=== PATIENT | male | born 1970 | race Caucasian/White ===

== ENCOUNTER 2025-02-07 10:03 | Outpatient (REF) | payer OTHER, SELFPAY ==
--- OUTSIDE RECORDS SUMMARY | 2025-02-07 09:00 | XMS_ITS | Encounter Summary ---
Author Organization [employer] [facility] Address [address] [place] [address] [address] [address] Care Team Providers Care Power Hammer Operator Name Role Phone Jeanie Briggs MD Primary Care Provider [phone] Reason for Referral * Consultation (Routine) - Authorized Specialty Diagnoses / Procedures Referred By Camille oneill Referred To Contact Nutrition Diagnoses Primary hypertension Prediabetes Jeanie Briggs MD [address] [place] [address] Phone: tel: fax: Referral ID Status Reason Start Date Expiration Date Visits Requested Visits Authorized [id number] Authorized Consult and Treat 02/07/2025 02/07/2026 1 1 * Consultation (Routine) - Pending Review Specialty Diagnoses / Procedures Referred By Camille oneill Referred To Contact Chiropractic Medicine Diagnoses Neck pain Jeanie Briggs MD [address] [place] [address] Phone: tel: fax: Referral ID Status Reason Start Date Expiration Date Visits Requested Visits Authorized [id number] Pending Review Specialty Services Required 02/07/2026 1 1 Reason for Visit * Reason Comments Establish Care Hypertension Encounter Details Date Type Department Care Team ([facility] Contact Info) Description 02/07/2025 9:00 AM EDT Office Visit [facility] MED & PEDS [address] [place] [address] Jeanie Briggs MD [address] [place] [address] Primary hypertension (Primary Dx); Prediabetes; Neck pain Social History Tobacco Use Types Packs/Day Years Used Date Smoking Tobacco: Never Smokeless Tobacco: Never Tobacco Cessation:Counseling Given: Not Answered Alcohol Use Standard Drinks/Week Comments Never 0 (1 standard drink = 0.6 oz pur e alcohol) Depression Answer Date Recorded Patient Health Questionnaire-9 Score 15 02/07/2025 Patient Health Questionnaire-9 Score 15 02/07/2025 Last PHQ-9: Questionnaire Data Not on file 1 Housing Stability Answer Date Recorded What is your housing situation today? I have jose de jesus em 02/07/[address] you li ve. Do you have problems with any of the following? None of the above 02/07/2025 Food Insecurity Answer Date Recorded Within the past 12 months, y ou worried that your food would run out before you got money to buy more: Never True 02/07/2025 Within the past 12 months,th e food you bought just didn't last and you didn't have enough money to get more: Never True Transportation Answer Date Recorded In the past 12 months, has l ack of transportation kept you from medical appts, meetings, work or from getting things needed for daily living? No 02/07/2025 Utilities Answer Date Recorded In the past 12 months, has t he electric, gas, oil or water company threatened to shut off services in your home? No 02/07/2025 Depression Answer Date Recorded Patient Health Questionnaire-2 Score 4 02/07/2025 Internet Access Answer Date Recorded Internet Access Q1 No 02/07/2025 Internet Access Q2 I do not want or need it 01/18 Sex and Gender Information Value Date Recorded Sex Assigned at Male 02/16/2022 10:31 AM EDT Legal Sex Male 10:31 AM EDT Gender Identity Male 02/16/2022 10:31 AM EDT Sexual Orientation Don't know 02/16/2022 10 :31 AM EDT documented as of this encounter Last Filed Vital Signs Vital Sign Reading Time Taken Comments Blood Pressure 138/96 02/07/2025 9:27 AM EDT Manually checked Pulse 71 02/07/2025 9:27 AM EDT Temperature 36.3 C (97.3 F) 02/07/2025 9:27 AM EDT Respiratory Rate 18 02/07/2025 9:27 AM EDT Oxygen Saturation - - Inhaled Oxygen Concentration - - Weight 115 kg (254 lb) 02/07/2025 9:27 AM EDT Height 180.3 cm (5' 11 ) 02/07/2025 9:2 7 AM EDT Body Mass Index 35.43 02/07/2025 9:27 AM EDT documented in this encounter Functional Status * Over the past 2 weeks, how often have you been bothered by any of the following problems? Question Answer Date of Assessment Author Patient Health Questionnaire -2 Score 4 02/07/2025 9:32 AM EDT Tatiana Fortune MA * Little interest or pleasure in doing things Answer Date of Assessment Author More than half the days 02/07/2025 9:32 AM EDT Tatiana Mcdermott MA * Feeling down, depressed, or hopeless Answer Date of Assessment Author More than half the days 02/07/2025 9:32 AM EDT Tatiana Mcdermott MA * Trouble falling or staying asleep, or sleeping too much Answer Date of Assessment Author More than half the days 02/07/2025 9:32 AM EDT Tatiana Mcdermott MA * Feeling tired or having little energy Answer Date of Assessment Author More than half the days 02/07/2025 9:32 AM EDT Tatiana Mcdermott MA * Poor appetite or overeating Answer Date of Assessment Author Several days 02/07/2025 9:32 AM EDT Nohemy Fortune MA * Feeling bad about yourself - or that you are a failure or have let yourself or your family down Answer Date of Assessment Author Several days 02/07/2025 9:32 AM EDT Nohemy Fortune MA * Trouble concentrating on things, such as reading the newspaper or watching television Answer Date of Assessment Author Nearly every day 02/07/2025 9:32 AM EDT Makenzie Fortune MA * Moving or speaking so slowly that other people could have noticed? Or the opposite - being so fidgety or restless that you have been moving around a lot more than usual. Answer Date of Assessment Author More than half the days 02/07/2025 9:32 AM EDT Tatiana Mcdermott MA * Thoughts that you would be better off or hurting yourself in some way Answer Date of Assessment Author Not at all 02/07/2025 9:32 AM EDT Nohemy Fortune MA * Patient Health Questionnaire-9 Score Answer Date of Assessment Author 15 02/07/2025 9:32 AM EDT Nohemy Fortune MA * How difficult have these problems made it for you to do your work, take care of things at home, or get along with other people? Answer Date of Assessment Author Somewhat difficult 02/07/2025 9:32 AM EDT Tatiana Fortune MA documented as of this encounter Progress Notes * Jeanie Briggs MD - 02/07/2025 9:00 AM EDT Subjective Patient ID: Conor Muhammad is a 54 y.o. male who presents for Establish Care and Hypertension. Hypertension This is a new problem. The problem has been gradually worsening since onset. The problem is uncontrolled. Pertinent negatives include no anxiety, blurred vision, chest pain, headaches, malaise/fatigue, neck pain, orthopnea, palpitations, peripheral edema, PND, shortness of breath or sweats. Risk factors for coronary artery disease include family history, male gender and sedentary lifestyle. Past treatments include nothing. There are no compliance problems. Review of Systems Constitutional: Negative. Negative for malaise/fatigue. Eyes: Negative for blurred vision. Respiratory: Negative. Negative for shortness of breath. Cardiovascular: Negative. Negative for chest pain, palpitations, orthopnea and PND. Gastrointestinal: Negative. Genitourinary: Negative. Musculoskeletal: Negative for neck pain. Neurological: Negative for headaches. Objective Physical Exam Constitutional: Appearance: Normal appearance. Cardiovascular: Rate and Rhythm: Normal rate and regular rhythm. Pulmonary: Effort: Pulmonary effort is normal. Breath sounds: Normal breath sounds. Neurological: General: No focal deficit present. Mental Status: He is alert. Psychiatric: Mood and Affect: Mood normal. Behavior: Behavior normal. Assessment/Plan Diagnoses and all orders for this visit: Primary hypertension Comments: Elevated Refererred to fire prevention specialist Maintain a low-sodium diet (less than 2 grams per day). Maintain a regular cardiovascular exercise program. Advised to maintain a low-fat, low-cholesterol diet. Counseled regarding importance of weight loss. Counseled re: potential co-morbidities including cardiovascular disease. Orders: - Basic Metabolic Panel; Future - Lipid Panel, Standard; Future - Hepatic Function Panel; Future - Referral to Nutrition Therapy; Future Prediabetes Labs ordered today to confirm - Hemoglobin A1c; Future - Basic Metabolic Panel; Future - Albumin, Random Urine W/Creatinine; Future - Referral to Nutrition Therapy; Future Neck pain Comments: Advised stretching and warm compress Naproxen as needed Referred to Chiropractor Orders: - Referral to Chiropractic; Future documented in this encounter Plan of Treatment Upcoming Encounters Date Type Department Care Team (Late st Contact Info) Description 03/20/2025 2:00 PM EST Office Visit [facility] MED & PEDS [address] [place], [place] [id number] Yarely Patel, [facility] [address] [place] [address] Scheduled Orders Name Type Priority Associated Diagnoses Orde r Schedule Hemoglobin A1c Lab Routine Prediabetes Expected: 02/07/2025 (Approximate), Expires: 02/07/2026 Basic Metabolic Panel Lab Routine Primary hypertension Prediabetes Expected: 02/07/2025 (Approximate), Expires: 02/07/2026 Lipid Panel, Standard Lab Routine Primary hypertension Expected: 02/07/2025 (Approximate), Expires: 02/07/2026 Hepatic Function Panel Lab Routine Primary hypertension Expected: 02/07/2025 (Approximate), Expires: 02/07/2026 Albumin, Random Urine W/Creatinine Lab Routine Prediabetes Expected: 02/07/2025 (Approximate), Expires: 02/07/2026 Scheduled Referrals Name Type Priority Associated Diagnoses Order Schedule Referral to Chiropractic Outpatient Referral Routine Neck pain Expected: 02/07/2025 (Approximate), Expires: 02/07/2026 Referral to Nutrition Therapy Outpatient Referral Routine Primary hypertension Prediabetes Expected: 02/07/2025 (Approximate), Expires: 02/07/2026 documented as of this encounter Visit Diagnoses Diagnosis Primary hypertension- Primary Unspecified essential hypertension Prediabetes Other abnormal glucose Neck pain Cervicalgia documented in this encounter Additional Health Concerns Assessment Noted Time PHQ-9 Depression Total Score: 15 025 9:32 AM EDT documented as of this encounter Care Teams Power Hammer Operator Relationship Specialty Start Date End Date Jeanie Briggs MD [address] [place] [address] PCP - General Family Medicine 02/07/25 documented as of this encounter
--- OUTSIDE RECORDS SUMMARY | 2025-02-07 12:21 | XMS_ITS | Encounter Summary ---
Author Organization [employer] [facility] Address [address] [place] [address] 7 [place] [address] Care Team Providers Care Home Decorator Name Role Phone Unavailable Primary Care Provider Unavailabl e Reason for Visit * Reason Comments Pre-visit Planning Pre visit planning L VM Encounter Details Date Type Department Care Team (Late Contact Info) Description 02/02/2025 Patient Outreach [facility] [address] [place] [address] Timmy Krueger MD [address] [place] [address] Pre-visit Planning (Pre visit planning LVM ) Social History Tobacco Use Types Packs/Day Years Used Date Smoking Tobacco: Never Assessed Sex and Gender Information Value Date Recorded Sex Assigned at Male 02/16/2022 10:31 AM EDT Legal Sex Male 10:31 AM EDT Gender Identity Male 02/16/2022 10:31 AM EDT Sexual Orientation Don't know 02/16/2022 10 :31 AM EDT documented as of this encounter Progress Notes * Chang Gu - 02/02/2025 9:23 AM EDT CC Chang Banegas placed outbound call to patient to complete pre-visit planning. No answer at this time.Patient name and were not confirmed. CC left voicemail requesting return call. Direct contact information provided. documented in this encounter Plan of Treatment Upcoming Encounters Date Type Department Care Team (Late Contact Info) Description 03/20/2025 2:00 PM EST Office Visit [facility] MED & PEDS [address] [place] [address] Yarely Patel, MICHAEL [address] [facility] [place] [address] documented as of this encounter Visit Diagnoses Not on filedocumented in this encounter
--- OUTSIDE RECORDS SUMMARY | 2025-02-07 12:21 | XMS_ITS | Encounter Summary ---
Author Organization [employer] [facility] Address [address] [place] [address] [place] [id number] Care Team Providers Care Supervisor Hospitality House Name Role Phone Jeanie Briggs MD Primary Care Provider [phone] Encounter Details Date Type Department Care Team (Latest Contact Info) Description 08/08/2020 Abstract [facility] CONVERSION[facility] Dental, Provider, DDS Social History Tobacco Use Types Packs/Day Years Used Date Smoking Tobacco: Never Assessed Sex and Gender Information Value Date Recorded Sex Assigned at Male 02/16/2022 10:31 AM EDT Legal Sex Male 10:31 AM EDT Gender Identity Male 02/16/2022 10:31 AM EDT Sexual Orientation Don't know 02/16/2022 10 :31 AM EDT documented as of this encounter Plan of Treatment Upcoming Encounters Date Type Department Care Team ( st Contact Info) Description 03/20/2025 2:00 PM EST Office Visit [facility] MED & PEDS [address] [place] [address] Yarely Patel CNP [address] [place] [address] documented as of this encounter Visit Diagnoses Not on filedocumented in this encounter Care Teams Supervisor Hospitality House Relationship Specialty Start Date End Date Jeanie Briggs MD [address] [place] [address] PCP - General Family Medicine 02/07/25 documented as of this encounter
--- OUTSIDE RECORDS SUMMARY | 2025-02-07 12:21 | XMS_ITS | Encounter Summary ---
Author Organization [employer] [facility] Address [address] [place] [address] [address] [place] [address] Care Team Providers Care Classroom Paraprofessional Name Role Phone Unavailable Primary Care Provider Unavailabl e Reason for Visit * Reason Onset Date Comments chart prep 02/05/2025 Encounter Details Date Type Department Care Team (Late st Contact Info) Description 02/05/2025 Telephone [facility] MED & PEDS [address] [place] [address] Jeanie Briggs MD [address] [place] [address] chart prep Social History Tobacco Use Types Packs/Day Years Used Date Smoking Tobacco: Never Assessed Sex and Gender Information Value Date Recorded Sex Assigned at Male 02/16/2022 10:31 AM EDT Legal Sex Male 10:31 AM EDT Gender Identity Male 02/16/2022 10:31 AM EDT Sexual Orientation Don't know 02/16/2022 10 :31 AM EDT documented as of this encounter Miscellaneous Notes * Telephone Encounter - Isadora Holliday MA - 02/05/2025 2:42 PM EDT Chart Prep Labs: not applicable Images: not applicable Referrals: not applicable Vaccines due: Covid, Flu, PCV20, Hep B, and Zoster Screenings: colonoscopy Overdue care gaps: SBIRT, SDOH, PHQ-9, and Disability screen documented in this encounter Plan of Treatment Upcoming Encounters Date Type Department Care Team (Late st Contact Info) Description 03/20/2025 2:00 PM EST Office Visit [facility] MED & PEDS [address] [place] [address] Yarely Patel, MICHAEL 505 [facility] [place] [address] documented as of this encounter Visit Diagnoses Not on filedocumented in this encounter
--- OUTSIDE RECORDS SUMMARY | 2025-02-07 12:21 | XMS_ITS | Clinical Summary ---
Author Organization [facility] Address [address] [place] [address] Phone Care Team Providers Care Client Business Manager Name Role Phone Pcp, Unknown Primary Care Provider Unavailabl e Allergies No known active allergies Social History Tobacco Use Types Packs/Day Years Used Date Smoking Tobacco: Never Assessed Education Answer Date Recorded Are you interested in more education? Not on anne e 08/15/2022 Are you concerned about learning? Not on file 08/15/2022 No 08/15/2022 No 08/15/2022 Digital Access Answer Date Recorded No 09/13/2022 No 09/13/2022 No 09/13/2022 Reliable internet access at home? Not on file 09/13/2022 Device with a working camera? Not on file Sex and Gender Information Value Date Recorded Sex Assigned at Not on file Legal Sex Male 3:29 PM EST Gender Identity Not on file Sexual Orientation Not on file Last Filed Vital Signs Vital Sign Reading Time Taken Comments Blood Pressure 140/87 03/18/2022 6:40 PM EST Pulse 74 03/18/2022 6:40 PM EST Temperature 37.1 C (98.8 F) 03/18/2022 6:40 PM EST Respiratory Rate 18 03/18/2022 6:40 PM EST Oxygen Saturation 99% 03/18/2022 6:40 PM EST Inhaled Oxygen Concentration - - Weight 117 kg (258 lb) 03/18/2022 3:31 PM EST Height 182.9 cm (6') 03/18/2022 3:31 PM EST Body Mass Index 34.99 03/18/2022 3:31 PM EST Plan of Treatment Health Maintenance Due Date Last Done Comments LIPID PANEL 1971 DEPRESSION SCREENING 1983 SMOKING Hx and SMOKELESS TOB ACCO SCREENING 08/17/1984 HEPATITIS C SCREENING 08/17/1989 HIV ONE-TIME SCREENING (18-6 5 YEARS) 08/17/1989 COLOGUARD 08/17/2016 COLONOSCOPY 08/17/2016 COLORECTAL CANCER SCREENING 08/17/2016 FIT TEST 08/17/2016 FOBT 08/17/2016 SIGMOIDOSCOPY 08/17/2016 VIRTUAL COLONOSCOPY 08/17/2016 PNEUMOCOCCAL VACCINES (50+ y ears) (1 of 1 - PCV) 08/17/2021 ZOSTER VACCINES (1 of 2) 08/17/2021 INFLUENZA VACCINE (#1) 2024 COVID-19 VACCINE (1 - 2024-2 6 season) 2024 SCREENING FOR DIABETES 03/18/2025 03/18/2022 Adult Td,Tdap Booster 04/05/2029 04/05/2019 RSV VACCINE (1 - 1-dose 75+ series) 08/17/2046 HEPATITIS A VACCINES Aged Out No long er eligible based on patient's age to complete this topic HIB VACCINES Aged Out No longer eligi ble based on patient's age to complete this topic MENINGOCOCCAL VACCINES (ACWY) Aged Out No longer eligible based on patient's age to complete this topic MENINGOCOCCAL VACCINES (B) Aged Out N o longer eligible based on patient's age to complete this topic Medical Devices Not on file Insurance [employer] TOGETHER M[employer] TOGETHER M[employer] TOGETHER M[employer]GETHER [employer] Care Teams Client Business Manager Relationship Specialty Start Date End Date Pcp, Unknown PCP - General 03/18/22 Additional Source Comments The information contained in this document represents components of the legal health record. It is not the complete legal health record.[facility]
--- OUTSIDE RECORDS SUMMARY | 2025-02-07 12:21 | XMS_ITS | Encounter Summary ---
Author Organization [employer] Address [address] [place] [address] Care Team Providers Care Personnel Records Clerk Name Role Phone Jeanie Briggs MD Primary Care Provider [phone] Encounter Details Date Type Department Care Team (Latest Contact Info) Description 02/07/2025 Travel Social History Tobacco Use Types Packs/Day Years Used Date Smoking Tobacco: Never Smokeless Tobacco: Never Alcohol Use Standard Drinks/Week Comments Never 0 [...] AM EDT documented as of this encounter Functional Status * Over the [...] Fortune [place] documented as of this encounter Plan of Treatment Upcoming Encounters Date Type Department Care Team ([facility] st Contact Info) Description 03/20/2025 2:00 PM EST Office Visit [facility] MED & PEDS [address] [place] [address] Yarely Patel CNP [address] [place] [address] documented as of this encounter Visit Diagnoses Not on filedocumented in this encounter Additional Health Concerns Assessment Noted Time PHQ-9 Depression Total Score: 15 025 9:32 AM EDT documented as of this encounter Care Teams Personnel Records Clerk Relationship Specialty Start Date End Date Jeanie Briggs MD [address] [place] [address] PCP - General Family Medicine 02/07/25 documented as of this encounter
--- OUTSIDE RECORDS SUMMARY | 2025-02-07 12:21 | XMS_ITS | Encounter Summary ---
Author Organization [facility] Address [address] [place] [address] [place] [address] Phone Care Team Providers Care Rn Corrections Name Role Phone Pcp, Unknown Primary Care Provider Unavailabl e Encounter Details Date Type Department Care Team (Late st Contact Info) Description 03/18/2022 Procedure [facility], Ct Scan - [address] [address] Social History Tobacco Use Types Packs/Day Years Used Date Smoking Tobacco: Never Assessed Sex and Gender Information Value Date Recorded Sex Assigned at Not on file Legal Sex Male 3:29 PM EST Gender Identity Not on file Sexual Orientation Not on file documented as of this encounter Functional Status * Calculated C-SSRS Risk Score (Lifetime/Recent) Answer Date of Assessment Author No Risk Indicated 03/18/2022 3:37 PM Liliam Stanford RN * [place] Suicide Severity Rating Scale (Screener/Recent Self-Report) Question Answer Date of Assessment Author 1. Wish to be (Past 1 Month) No 03/18/2022 3:37 PM Liliam Stanford RN 2. Non-Specific Active Suici marques Thoughts (Past 1 Month) No 03/18/2022 3:37 PM Kanwal Stanford RN 6. Suicidal Behavior (Lifetime) No 2 3:37 PM Liliam Stanford RN 6. Suicidal Behavior (3 Months) No 2 3:37 PM Liliam Stanford RN documented as of this encounter Plan of Treatment Not on file documented as of this encounter Visit Diagnoses Not on filedocumented in this encounter Care Teams Rn Corrections Relationship Specialty Start Date End Date Pcp, Unknown PCP - General 03/18/22 documented as of this encounter Additional Source Comments The information contained in this document represents components of the legal health record. It is not the complete legal health record.[facility]
--- OUTSIDE RECORDS SUMMARY | 2025-02-07 12:21 | XMS_ITS | Clinical Summary ---
Author Organization [employer] Address [address] [facility] 7t [place] [address] Care Team Providers Care Postal Worker Name Role Phone Jeanie Briggs MD Primary Care Provider [phone] Allergies No known active allergies Medications No known medications Active Problems No known active problems Encounters Date Type Department Care Team Description 02/07/2025 9:00 AM EDT Office Visit [facility] MED & PEDS [address] [place] [address] Jeanie Briggs MD Primary hypertension (Primary Dx); Prediabetes; Neck pain 02/07/2025 Travel 02/05/2025 Telephone [facility] MED & PEDS [address] [place] [address] Jeanie Briggs MD chart prep 02/02/2025 Patient Outreach [facility] MEDICINE [address] [place], [place] [phone] Timmy Krueger MD Pre-visit Planning (Pre visit planning LVM ) from Last 3 Months Immunizations Immunization Administration Dates Next Due Tdap 04/05/2019 Family History Medical History Relation Name Comments Diabetes Father Relation Name Status Comments Brother Alive Father Alive Mother Sister Alive Social History Tobacco Use Types Packs/Day Years [...] Don't know 02/16/2022 10 :31 AM EDT Last Filed Vital Signs Vital Sign Reading [...] Mass Index 35.43 02/07/2025 9:27 AM EDT Plan of Treatment Upcoming Encounters Date Type Department Care Team ([facility] st Contact Info) Description 03/20/2025 2:00 PM EST Office Visit [facility] MED & PEDS [address] [place] [address] Yarely Patel, ADDRESSER 505 [place] [address] Health Maintenance Due Date Last Done Comments CT Colonography 1971 Colonoscopy 1971 Colorectal Cancer Screening 1971 Diabetes: Hemoglobin A1C 1971 FIT DNA/Cologuard 1971 FIT 1971 FOBT 1971 HIV Screening 1971 Lipid Panel 1971 Sigmoidoscopy 1971 Hepatitis C Screening 08/17/1989 Hepatitis B Vaccines (1 of 3 - 19+ 3-dose series) 08/17/1990 Pneumococcal Vaccine: 50+ Years (1 of 1 - PCV) 08/17/2021 Zoster Vaccines (1 of 2) 08/17/2021 Depression Monitoring 08/08/2025 02/07/2025 , 02/07/2025 Influenza Vaccine (#1) 2025 Postp oned from 12/18/2024 (Patient Refused) Alcohol/Substance Use Screening 02/07/2026 02/07/2025 COVID-19 Vaccine (1 - 2023-2 5 season) 2026 Postponed from 12/18 (Patient Refused) Disability Screening 02/07/2026 02/07/2025 SDOH Screening 02/07/2026 02/07/2025 Tobacco Screening 02/07/2026 02/07/2025 DTaP/Tdap/Td Vaccines (2 - T d or Tdap) 04/05/2029 04/05/2019 RSV Patients and Patients Aged 60 years or older (1 - 1-dose 75+ series) 08/17/2046 HIB Vaccines Aged Out No longer eligi ble based on patient's age to complete this topic HPV Vaccines Aged Out No longer eligi ble based on patient's age to complete this topic Hepatitis A Vaccines Aged Out No long er eligible based on patient's age to complete this topic IPV Vaccines Aged Out No longer eligi ble based on patient's age to complete this topic Meningococcal B Vaccine Aged Out No l onger eligible based on patient's age to complete this topic Meningococcal Vaccine Aged Out No eldon anjelica eligible based on patient's age to complete this topic RSV under 20 months Aged Out No longe r eligible based on patient's age to complete this topic Rotavirus Vaccines Aged Out No longer eligible based on patient's age to complete this topic Insurance [facility] Care Teams Postal Worker Relationship Specialty Start Date End Date Jaenie Briggs MD [address] [place] [id number] PCP - General Family Medicine 02/07/25
[2025-02-07 14:36] LABS: Alanine Aminotransferase 59 U/L (0-40); Albumin Level 4.7 g/dL (3.5-5.0); Alkaline Phosphatase 91 U/L (39-117); Anion Gap 12 (12-20); Aspartate Amino Transferase 38 U/L (5-37); Blood Urea Nitrogen 27 mg/dL (9-16); Calcium 9.0 mg/dL (8.4-10.2); Carbon Dioxide 27 mmol/L (22-29); Chloride 102 mmol/L (96-108); Cholesterol 308 mg/dL (<200); Estimated Glomerular Filt Rate > 60; HDL Cholesterol 35 mg/dL (>40); Potassium 4.1 mmol/L (3.3-5.1); Sodium 137 mmol/L (135-145); Total Protein 6.8 g/dL (6.5-8.0); Triglycerides 1017 mg/dL (<150)
== END 2025-02-07 10:04 | disposition home or self-care (01) ==
LOC: HO.CHCLDS 10:03
PROVIDERS: Visit Provider Student in an Organized Health Care Education/Training Program
DX: I10 Essential (primary) hypertension (principal); R73.03 Prediabetes
CPT/HCPCS: 36415; 80048; 80061; 80076; 83036

== ENCOUNTER 2025-04-06 14:51 | Outpatient (REF) | payer MEDICAID, SELFPAY ==
--- OUTSIDE RECORDS SUMMARY | 2025-04-06 14:30 | XMS_ITS | Encounter Summary ---
Author Organization [employer] Address [address] [facility] 7 [place] [address] Care Team Providers Care Household Worker Name Role Phone Yarely Patel CNP Primary Care Provider [phone] Reason for Visit * Reason Comments Follow-up dm Encounter Details Date Type Department Care Team ([facility] Contact Info) Description 04/06/2025 2:30 PM EST Office Visit [facility]S [address] [place], [place] [phone] Yarely Patel CNP [address] [place] [address] Type 2 diabetes mellitus with other specified complication, without long-term current use of insulin (HCC) Social History Tobacco Use Types Packs/Day Years [...] Sign Reading Time Taken Comments Blood Pressure 138/88 04/06/2025 2:22 PM EST Pulse 68 04/06/2025 2:22 PM EST Temperature 37.1 C (98.8 F) 04/06/2025 2:22 PM EST Respiratory Rate 14 04/06/2025 2:22 PM EST Oxygen Saturation 99% 04/06/2025 2:22 PM EST Inhaled Oxygen Concentration - - Weight 115 kg (254 lb) 04/06/2025 2:22 PM EST Height 180.3 cm (5' 11 ) 04/06/2025 2:22 PM EST Body Mass Index 35.43 04/06/2025 2:22 PM EST documented in this encounter Plan of Treatment Upcoming Encounters Date Type Department Care Team (Late st Contact Info) Description 04/10/2025 11:00 AM EST Medication Management [facility] MED & PEDS [address] [place], [place] [phone] Giana Bernard, Feng [address] [place] [address] 06/07/2025 1:00 PM EST Nutrition [facility] DIABETES/NTRN [address] [place], [place] [phone] Viviana Madera, RD 230 [place] [address] documented as of this encounter Goals Goal Patient Goal Type Associated Problems Recent Progress Patient-Stated? Author Help patients manage their type 2 diabetes Care Plan Help patients manage their type 2 diabetes No Yarely Patel CNP Patient has chronic kidney disease Care Plan Patient has chronic kidney disease No Yarely Patel CNP Patient has chronic kidney disease Care Plan Patient has chronic kidney disease No Char Wright MD Patient has chronic kidney disease Care Plan Patient has chronic kidney disease No Neda Salcido [place] documented as of this encounter Procedures Procedure Name Priority Date/Time Associated Diagnosis Comments POCT GLUCOSE Routine 04/06/2025 2:23 PM EST Type 2 diabetes mellitus with other specified complication, without long-term current use of insulin (HCC) documented in this encounter Results * POCT glucose manually resulted (04/06/2025 2:23 PM EST) [facility] Glucose Blood, POC 88 60 - 200 mg/dL QC Media Lot # Comment:[id number] Lot# Expiration Date Comment:07/24/2025 Blood Capillary blood specimen / Unknown 04/06/2025 2:23 PM EST Result [facility] Yarely Patel CNP POINT OF CARE TEST ENTER/ EDIT ORDERABLES Final Result documented in this encounter Visit Diagnoses Diagnosis Type 2 diabetes mellitus with other specified complication, without long-term current use of insulin (HCC) documented in this encounter Additional Health Concerns Active Problems Noted Date Diagnosed Date Help patients manage their type 2 diabetes 03/08 Patient has chronic kidney disease 03/08/2025 Patient has chronic kidney disease 03/08/2025 Patient has chronic kidney disease 04/06/2025 Assessment Noted Time PHQ-9 Depression Total Score: 15 025 9:32 AM EDT documented as of this encounter Care Teams Household Worker Relationship Specialty Start Date End Date Yarely Patel CNP [address] [place] [address] PCP - General Family Medicine 02/19/25 documented as of this encounter
--- OUTSIDE RECORDS SUMMARY | 2025-04-06 16:11 | XMS_ITS | Encounter Summary ---
Author Organization [facility] Address [address] [place] [phone] Phone Care Team Providers Care Global Risk Management Director Name Role Phone Pcp, Unknown Primary Care Provider Unavailabl e Encounter Details Date Type Department Care Team (Late st Contact Info) Description 03/18/2022 Procedure Pass [facility], Ct Scan - [address] [address] Social History Tobacco Use Types Packs/Day Years Used Date Smoking Tobacco: Never Assessed Sex and Gender Information Value Date Recorded Sex Assigned at Not on file Legal Sex Male 3:29 PM EST Gender Identity Not on file Sexual Orientation Not on file documented as of this encounter Plan of Treatment Not on file documented as of this encounter Visit Diagnoses Not on filedocumented in this encounter Care Teams Global Risk Management Director Relationship Specialty Start Date End Date Pcp, Unknown PCP - General 03/18/22 documented as of this encounter Additional Source Comments The information contained in this document represents components of the legal health record. It is not the complete legal health record.[facility]
--- OUTSIDE RECORDS SUMMARY | 2025-04-06 16:11 | XMS_ITS | Encounter Summary ---
Author Organization [employer] Address [address] [facility] 7t [place] [address] Care Team Providers Care Artist Mannequin Coloring Name Role Phone Yarely Patel CNP Primary Care Provider [phone] Reason for Visit * Reason Onset Date Comments Referral 03/19/2025 Encounter Details Date Type Department Care Team ([facility] st Contact Info) Description 03/19/2025 Telephone [facility] MEDICINE [address] [place] [address] Yarely Patel CNP [address] [place] [address] Referral Social History Tobacco Use Types Packs/Day Years [...] encounter Miscellaneous Notes * Telephone Encounter - Stacie Emmanuel - 03/19/2025 10:39 AM EST Tc from pt requesting new referral for [employer]. Location:[address], [address] [place] [address] Please contact at [phone] documented in this encounter Plan of Treatment Upcoming Encounters Date Type Department Care Team ([facility] st Contact Info) Description 04/10/2025 11:00 AM EST Medication Management [facility] MED & PEDS [address] [place] [address] Giana Bernard PharmD [address] [place] [address] 06/07/2025 1:00 PM EST Nutrition [facility] DIABETES/NTRN [address] [place] [address] [place] [address] documented as of this encounter Goals Goal [...] chronic kidney disease No Char Wright MD documented as of this encounter Visit Diagnoses Not on filedocumented in this encounter Additional Health Concerns Active Problems Noted Date Diagnosed Date Help patients manage their type 2 diabetes 03/08 Patient has chronic kidney disease 03/08/2025 Patient has chronic kidney disease 03/08/2025 Assessment Noted Time PHQ-9 Depression Total Score: 15 025 9:32 AM EDT documented as of this encounter Care Teams Artist Mannequin Coloring Relationship Specialty Start Date End Date Yarely Patel CNP [address] [place] [address] PCP - General Family Medicine 02/19/25 documented as of this encounter
--- OUTSIDE RECORDS SUMMARY | 2025-04-06 16:11 | XMS_ITS | Clinical Summary ---
Author Organization [facility] Address [address] [place] [address] Phone Care Team Providers Care Record Clerk Salesperson Name Role Phone Pcp, Unknown Primary Care [...] VACCINE (1 - 2024-2 6 season) 2024 Adult Td,Tdap Booster 04/05/2029 04/05/2019 RSV VACCINE [...] topic Medical Devices Not on file [facility] [employer] [employer] [facility] [place] [place] [employer] Care Teams Record Clerk Salesperson Relationship Specialty Start Date End Date Pcp, Unknown PCP - General 03/18/22 Additional Source Comments The information contained in this document represents components of the legal health record. It is not the complete legal health record.[facility]
--- OUTSIDE RECORDS SUMMARY | 2025-04-06 16:11 | XMS_ITS | Encounter Summary ---
Author Organization [employer] [facility] Address [address] [place] [address] 7t [place] [address] Care Team Providers Care Lace Tearing Supervisor Name Role Phone Jeanie Briggs MD Primary Care Provider [phone] Yarely Patel CNP Primary Care Provider [phone] Encounter Details Date Type Department Care Team (Latest Contact Info) Description 08/08/2020 Abstract [facility] CONVERSIONS Dental, Provider, DDS Social History [...] Description 04/10/2025 11:00 AM EST Medication Management [facility] MED & PEDS [address] [place] [address] Giana Bernard, PharmD [address] [place] [address] 06/07/2025 1:00 PM EST Nutrition [facility] DIABETES/NTRN [address] [place], [place] [phone] Viviana Madera, BETTY [address] [place] [address] documented as of this encounter Visit Diagnoses Not on filedocumented in this encounter Care Teams Lace Tearing Supervisor Relationship Specialty Start Date End Date Jeanie Briggs MD 505 [place] [address] PCP - General Family Medicine 02/07/25 02/18/25 Yarely Patel CNP [address] [place] [address] PCP - General Family Medicine 02/19/25 documented as of this encounter
--- OUTSIDE RECORDS SUMMARY | 2025-04-06 16:11 | XMS_ITS | Encounter Summary ---
Author Organization [employer] Address [address] [facility] 7 [place] [address] Care Team Providers Care Manhole Stripper Name Role Phone Yarely Patel CNP Primary Care Provider [phone] Reason for Visit * Reason Onset Date Comments chart prep 04/04/2025 Encounter Details Date Type Department Care Team ([facility] Contact Info) Description 04/04/2025 Telephone [facility] MED & PEDS [address] [place], [place] [phone] Yarely Patel CNP [address] [place] [address] chart prep Social History Tobacco Use Types [...] encounter Miscellaneous Notes * Telephone Encounter - Neda Salcido [place] - 04/04/2025 3:59 PM EST Chart Prep Labs: not applicable Images: not applicable Referrals: not applicable Vaccines due: PCV20, Hep B, and Zoster Screenings: colonoscopy, eye exam, foot exam, and STI screening Overdue care gaps: Not applicable documented in this encounter Plan of Treatment Upcoming Encounters Date Type Department Care Team (Late st Contact Info) Description 04/10/2025 11:00 AM EST Medication Management [facility] MED & PEDS [address] [place] [address] Giana Bernard, PharmD 230 [place] [address] 06/07/2025 1:00 PM EST Nutrition [facility] DIABETES/NTRN [address] [place] [address] [place] [address] documented as of this encounter Goals Goal [...] documented as of this encounter Care Teams Manhole Stripper Relationship Specialty Start Date End Date Yarely Patel CNP [address] [place] [address] PCP - General Family Medicine 02/19/25 documented as of this encounter
--- OUTSIDE RECORDS SUMMARY | 2025-04-06 16:11 | XMS_ITS | Encounter Summary ---
Author Organization [employer] Address [address] 7[address] [place] [address] Care Team Providers Care Application Architect Manager Name Role Phone Jorge Ottonielanitajannie MICHAEL Primary Care Provider [phone] Encounter Details Date Type Department Care Team (Latest Contact Info) Description 04/06/2025 Travel Social History Tobacco Use Types Packs/Day [...] Description 04/10/2025 11:00 AM EST Medication Management [facility] MED & PEDS [address] [place], [place] [phone] Giana Bernard PharmD [address] [place] [address] 06/07/2025 1:00 PM EST Nutrition [facility] DIABETES/NTRN [address] [place] [address] [place] [address] documented as of this encounter Goals Goal [...] Salcido [place] documented as of this encounter Visit Diagnoses [...] documented as of this encounter Care Teams Application Architect Manager Relationship Specialty Start Date End Date Yarely Patel CNP [address] [place] [address] PCP - General Family Medicine 02/19/25 documented as of this encounter
--- OUTSIDE RECORDS SUMMARY | 2025-04-06 16:11 | XMS_ITS | Encounter Summary ---
Author Organization [employer] Address [address] [facility] [address] [place] [address] Care Team Providers Care Negative Cutter Name Role Phone Yarely Patel CNP Primary Care Provider [phone] Reason for Visit * Reason Onset Date Comments r/s appt 02/22/2025 Encounter Details Date Type Department Care Team (Late st Contact Info) Description 02/22/2025 Telephone [facility] MEDICINE [address] [place] [address] Yarely Patel CNP [address] [place] [address] r/s appt Social History Tobacco Use Types Packs/Day Years [...] encounter Miscellaneous Notes * Telephone Encounter - Rylie De Guzman - 02/22/2025 2:27 PM EST Tc from Rachel requesting a call back to R/s tele from 02/22 ( telehealth TP visit scheduled to review lab results per previous PCP (Dr. Briggs) A1C, BMP, Lipids, Hepatic functions.//No active insurance -pt not enrolled in [facility] ) pt had another insurance active will like a sooner appointment underwriter solicitation director see appointment for March and is toofar. PCP PROSPER Patel documented in this encounter Plan of Treatment Upcoming Encounters Date Type Department Care Team (Late st Contact Info) Description 04/10/2025 11:00 AM EST Medication Management [facility] MED & PEDS [address] [place] [address] Giana Bernard, PharmD [address] [place], [place] [phone] 06/07/2025 1:00 PM EST Nutrition [facility] DIABETES/NTRN [address] [place] [address] [place], [place] [phone] documented as of this encounter Visit Diagnoses Not on filedocumented in this encounter Additional Health Concerns Assessment Noted Time PHQ-9 Depression Total Score: 15 025 9:32 AM EDT documented as of this encounter Care Teams Negative Cutter Relationship Specialty Start Date End Date Yarely Patel CNP [address] [place] [address] PCP - General Family Medicine 02/19/25 documented as of this encounter
--- OUTSIDE RECORDS SUMMARY | 2025-04-06 16:11 | XMS_ITS | Clinical Summary ---
Author Organization [employer] Address [address] [facility] [address] [place] [address] Care Team Providers Care Terminal Make Up Operator Name Role Phone Jorge Ottonielanitajannie MICHAEL Primary Care Provider [phone] Allergies No known active allergies Medications metFORMIN (Glucophage) 500 MG tabletIndicatio ns:Type 2 diabetes mellitus with other specified complication, without long-term current use of insulin ([facility]) Take 1 tablet (500 mg) by mouth with breakfast and with evening meal. 60 tablet 11 5 03/08/20 26 Active glucagon (Baqsimi) 3 MG/DOSE nasal powderIndicatio ns:Type 2 diabetes mellitus with other specified complication, without long-term current use of insulin ([facility]) Administer 3 mg into affected nostril(s) 1 (one) time if needed for low blood sugar. 1 each 1 5 03/08/20 26 Active atorvastatin (Lipitor) 40 MG tabletIndicatio ns:Type 2 diabetes mellitus with other specified complication, without long-term current use of insulin ([facility]) Take 1 tablet (40 mg) by mouth Once per day. 30 tablet 11 5 03/08/20 26 Active empagliflozin (Jardiance) 10 MGIndications:T ype 2 diabetes mellitus with other specified complication, without long-term current use of insulin ([facility]) Take 1 tablet (10 mg) by mouth Once per day. 30 tablet 11 5 03/08/20 26 Active omega-3 acid ethyl esters (Lovaza) 1 g capsuleIndicati ons:Type 2 diabetes mellitus with other specified complication, without long-term current use of insulin ([facility]),Hypertrig lyceridemia Take 2 capsules (2 g) by mouth 2 times daily. 120 capsule 11 5 03/08/20 26 Active Active Problems Problem Noted Date Diagnosed Date Obesity 04/04/2025 Chest wall pain 03/08/2025 High triglycerides 03/08/2025 Hypothyroid 03/08/2025 Class 1 obesity 03/08/2025 Encounters Date Type Department Care Team Description 04/06/2025 2:30 PM EST Office Visit [facility] [address] [place] [address] Yarely Patel CNP Type 2 diabetes mellitus with other specified complication, without long-term current use of insulin (HCC) 04/06/2025 Travel 04/04/2025 Telephone [facility] [address] [place] [address] Yarely Patel CNP chart prep 03/21/2025 Population Health Risk Score [facility] () Department [address] [place] [phone] Provider, Population Health Generic 03/19/2025 Telephone [facility] MEDICINE [address] [place] [address] Yarely Patel CNP Referral 03/12/2025 Telephone [facility] [address] [place] [address] Yarely Patel CNP recall appt 03/08/2025 1:30 PM EST Telemedicine [facility] [address] [place] [address] Yarely Patel CNP Type 2 diabetes mellitus with other specified complication, without long-term current use of insulin (HCC) (Primary Dx); Hypertriglyceridemi a 03/08/2025 Orders Only [facility] [address] [place] [address] Char Wright MD Type 2 diabetes mellitus with other specified complication, without long-term current use of insulin (HCC) (Primary Dx); Hypertriglyceridemi a 02/22/2025 Telephone [facility] MEDICINE [address] [place] [address] Yarely Patel CNP r/s appt 02/22/2025 Travel 02/16/2025 Results Follow-Up [facility] [address] [place] [address] Jeanie Briggs MD Hemoglobin A1c, Basic Metabolic Panel, Lipid Panel, Standard, Hepatic Function Panel 02/07/2025 9:00 AM EDT Office Visit [facility] [address] [place] [address] Jeanie Briggs MD Primary hypertension (Primary Dx); Prediabetes; Neck pain 02/07/2025 Travel 02/05/2025 Telephone [facility] [address] [place] [address] Jeanie Briggs MD chart prep 02/02/2025 Patient Outreach [facility] [address] [place] [address] Timmy Krueger MD Pre-visit Planning (Pre visit [...] Mass Index 35.43 04/06/2025 2:22 PM EST Plan of Treatment Upcoming Encounters Date Type Department Care Team (Late st Contact Info) Description 04/10/2025 11:00 AM EST Medication Management [facility] [address] [place] [address] Giana Bernard, PharmD [address] [place], [place] [phone] 06/07/2025 1:00 PM EST Nutrition [facility] DIABETES/NTRN [address] [place], [place] [phone] Viviana [address] [place], [place] [phone] Health Maintenance Due Date Last Done Comments CT Colonography 1971 Colonoscopy 1971 Colorectal Cancer Screening 1971 FIT DNA/Cologuard 1971 FIT 1971 FOBT 1971 HIV Screening 1971 Sigmoidoscopy 1971 Diabetes: Foot Exam 08/17/1981 Eye Exam 08/17/1981 Hepatitis C Screening 08/17/1989 Diabetes: Urine Protein Screening 08/17/1990 Hepatitis B Vaccines (1 of 3 - 19+ 3-dose series) 08/17/1990 Pneumococcal Vaccine: 50+ Years (1 of 2 - PCV) 08/17/1990 Zoster Vaccines (1 of 2) 08/17/2021 Diabetes: Hemoglobin A1C 05/10/2025 02/07/2025 Depression Monitoring 08/08/2025 02/07/2025 , 02/07/2025 Influenza Vaccine (#1) 2025 Postp oned from 12/18/2024 (Patient Refused) Alcohol/Substance Use Screening 02/07/2026 02/07/2025 COVID-19 Vaccine (1 - 2024-2 6 season) 2026 Postponed from 12/18 (Patient Refused) Disability Screening 02/07/2026 02/07/2025 Lipid Panel 02/07/2026 02/07/2025 SDOH Screening 02/07/2026 02/07/2025 Tobacco [...] on patient's age to complete this topic Goals Goal Patient Goal Type Associated Problems [...] chronic kidney disease No Neda Salcido MA Procedures Procedure Name Priority Date/Time Associated Diagnosis Comments POCT GLUCOSE Routine 04/06/2025 2:23 PM EST Type 2 diabetes mellitus with other specified complication, without long-term current use of insulin (HCC) HEPATIC FUNCTION PANEL Routine 02/07/2025 10:08 AM EDT Primary hypertension LIPID PANEL, STANDARD Routine 02/07/2025 10:08 AM EDT Primary hypertension BASIC METABOLIC PANEL Routine 02/07/2025 10:08 AM EDT Primary hypertension Prediabetes HEMOGLOBIN A1C Routine 02/07/2025 10:08 AM EDT Prediabetes from Last 3 Months Results * POCT glucose manually resulted (04/06/2025 2:23 PM EST) Glucose Blood, POC 88 60 - 200 mg/dL QC Media Lot # Comment:[id number] Lot# Expiration Date Comment:07/24/2025 Blood Capillary blood specimen / Unknown 04/06/2025 2:23 PM EST Yarely Patel CNP POINT OF CARE TEST ENTER/ EDIT ORDERABLES Final Result * (ABNORMAL) Hemoglobin A1c (02/07/2025 10:08 AM EDT) Hemoglobin A1c 10.3(H) <6.0 % [facility] Comment:Hemoglobin A1C Refer ence Range Adults: 4.8 - 6.0 % Non diabetic: < 6.0 % Goal: < 7.0 %Additional Action Suggested: > 8.0 %Note: Hemoglobin A1c results are invalid for patients with abnormal amounts of HbF. Blood transfusions may impact the HbA1c concentration in the patient sample. Estimated Average Glucose 249 mg/dL [facility] Comment:eAG = Estimated ave rage glucose which is %A1C expressed asaverage glucose, using the formula of the X4X-[id number] Glucose study (ADAG), Diabetes Care, Vol.31,#8,Nov. 2007 Blood Venous blood specimen / Unknown 02/07/2025 10:08 AM EDT 02/07/2025 1:59 PM EDT Jeanie Briggs MD LAB BLOOD ORDERABLES Final Resul t Performing Organization Address [facility] Co de Phone Number [facility] [address] [place] [phone] * (ABNORMAL) Hepatic Function Panel (02/07/2025 10:08 AM EDT) Bilirubin, Total 0.6 0.0 - 1.0 mg/dL [facility] Bilirubin, Direct 0.1 0.0 - 0.5 mg/dL [facility] Aspartate Amino Transferase 38(H) 5 - 37 U/L [facility] Alanine Aminotransferase 59(H) 0 - 40 U/L [facility] Total Protein 6.8 6.5 - 8.0 g/dL [facility] Albumin Level 4.7 3.5 - 5.0 g/dL [facility] Alkaline Phosphatase 91 39 - 117 U/L [facility] Blood Venous blood specimen / Unknown 02/07/2025 10:08 AM EDT 02/07/2025 1:59 PM EDT Jeanie Briggs MD LAB BLOOD ORDERABLES Final Resul t Performing Organization Address [facility] Co de Phone Number [facility] [address] [place] [phone] * (ABNORMAL) Lipid Panel, Standard (02/07/2025 10:08 AM EDT) Triglycerides 1,017(H) <150 mg/dL [facility] Comment:Desirable Triglyceri de: less than 150 mg/dLBorderline High Triglyceride 150-199 mg/dLHigh Triglyceride: 200-499 mg/dLVery High Triglyceride: greater than or equal to 5OO mg/dL Cholesterol 308(H) <200 mg/dL [facility] Comment:Desirable Cholestero l: less than 200 mg/dLBorderline High Cholesterol: 200-239 mg/dLHigh Cholesterol: greater than 239 mg/dL LDL Cholesterol Calculated TNP <100 mg/dL [facility] Comment:Unable to calculate the LDL. The formula of Friedwald,Lim, and Lou is only valid if the triglycerides areless than 400 mg/dl. HDL Cholesterol 35(L) >40 mg/dL [facility] Comment:Desirable HDL: great er than 40 mg/dL Note: This HDL assay may give artificially low results in patients with liver disease. Blood Venous blood specimen / Unknown 02/07/2025 10:08 AM EDT 02/07/2025 1:59 PM EDT us Jeanie Briggs MD LAB BLOOD ORDERABLES Final Resul t [facility] [address] [place] [address] [phone] * (ABNORMAL) Basic Metabolic Panel (02/07/2025 10:08 AM EDT) Sodium 137 135 - 145 mmol/L [facility] Potassium 4.1 3.3 - 5.1 mmol/L [facility] Chloride 102 96 - 108 mmol/L [facility] Carbon Dioxide 27 22 - 29 mmol/L [facility] Anion Gap 12 12 - 20 [facility] Urea Nitrogen (BUN) 27(H) 9 - 16 mg/dL [facility] Creatinine, Serum 0.88 0.5 - 1.4 mg/dL [facility] Estimated Glomerular Filt Rate >60 [facility] Comment:Chronic Kidney Disea se: Estimated GFR < 60 mL/min/[id number] Kidney Disease: Estimated GFR < 15 mL/min/1.73m2 Glucose 235(H) 60 - 115 mg/dL [facility] Calcium 9.0 8.4 - 10.2 mg/dL [facility] Blood Venous blood specimen / Unknown 02/07/2025 10:08 AM EDT 02/07/2025 1:59 PM EDT us Jeanie Briggs MD LAB BLOOD ORDERABLES Final Resul t [facility] [address] [place] [phone] from Last 3 Months Additional Health Concerns Active Problems Noted Date Diagnosed Date Help patients manage their type 2 diabetes 03/08 Patient has chronic kidney disease 03/08/2025 Patient has chronic kidney disease 03/08/2025 Patient has chronic kidney disease 04/06/2025 Insurance [facility] C3 Care Teams Terminal Make Up Operator Relationship Specialty Start Date End Date Yarely Patel CNP [address] [place] [address] PCP - General Family Medicine 02/19/25
[2025-04-06 17:51] LABS: Alanine Aminotransferase 57 U/L (0-40); Albumin Level 5.0 g/dL (3.5-5.0); Alkaline Phosphatase 83 U/L (39-117); Anion Gap 15 (12-20); Aspartate Amino Transferase 62 U/L (5-37); Blood Urea Nitrogen 23 mg/dL (9-16); Calcium 9.8 mg/dL (8.4-10.2); Carbon Dioxide 25 mmol/L (22-29); Chloride 105 mmol/L (96-108); Cholesterol 135 mg/dL (<200); Estimated Glomerular Filt Rate > 60; HDL Cholesterol 33 mg/dL (>40); Potassium 4.5 mmol/L (3.3-5.1); Sodium 140 mmol/L (135-145); Total Protein 7.1 g/dL (6.5-8.0); Triglycerides 277 mg/dL (<150)
== END 2025-04-06 14:52 | disposition home or self-care (01) ==
LOC: HO.CHCLDS 14:51
DX: E11.8 Type 2 diabetes mellitus with unspecified complications (principal)
CPT/HCPCS: 36415; 80053; 80061; 83036

== ENCOUNTER 2025-04-10 12:32 | Outpatient (REF) | payer MEDICAID, SELFPAY ==
--- OUTSIDE RECORDS SUMMARY | 2025-04-06 14:30 | XMS_ITS | Encounter Summary ---
Author Organization [employer] Address [address] [facility] 7 [place] [address] Care Team Providers Care Security Installer Name Role Phone Yarely Patel CNP Primary Care Provider [phone] Reason for Visit * Reason Comments Follow-up dm Encounter Details Date Type Department Care Team (Latest Contact Info) Description 04/06/2025 2:30 PM EST Office Visit [facility] MED & PEDS [address] [place], [place] [phone] Yarely Patel CNP [address] [place] [address] Hypertriglyceridemia (Primary Dx); Type 2 diabetes mellitus with other specified complication, without long-term current use of insulin (HCC); Dietary counseling; Exercise counseling; 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 male who presents for Follow-up (dm). HPI JENNIFER was telemedicine visit to discuss new diagnosis of T2DM as well as hypertriglyceridemia. At this visit metformin was initiated, jardiance, lovaza and lipitor initiated. Pt also agreed to CDTM referral. Today pt reports he is tolerating medication well. He expresses interest in GLP 1 therapy for treatment of DM. Review of Systems Objective Vitals: 04/06/25 1422 BP: 138/88 Pulse: 68 Resp: 14 Temp: 98.8 ??F (37.1 ??C) SpO2: 99% Physical Exam Vitals reviewed. Constitutional: General: He is not in acute distress. Appearance: Normal appearance. He is not ill-appearing, toxic-appearing or diaphoretic. HENT: Head: Normocephalic and atraumatic. Cardiovascular: Rate and Rhythm: Normal rate and regular rhythm. Pulses: Normal pulses. Heart sounds: Normal heart sounds. No murmur heard. No friction rub. No gallop. Pulmonary: Effort: Pulmonary effort is normal. No respiratory distress. Breath sounds: Normal breath sounds. No stridor. No wheezing, rhonchi or rales. Chest: Chest wall: No tenderness. Musculoskeletal: Right lower leg: No edema. Left lower leg: No edema. Neurological: General: No focal deficit present. Mental Status: He is alert and oriented to person, place, and time. Mental status is at baseline. Psychiatric: Mood and Affect: Mood normal. Behavior: Behavior normal. Thought Content: Thought content normal. Judgment: Judgment normal. 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 Eat different types of protein foods in your diet. This can include seafood, lean meats, poultry, beans, peas, lentils, nuts, seeds, soy products, and eggs. Limit foods and beverages higher in added sugars, saturated fat, and sodium. Exercise Recommendations: At least 150 minutes of moderate-intensity physical activity per week, or an equivalent combinationof moderate- and vigorous-intensity activity Dietary Counseling Exercise Counseling Hypertriglyceridemia - Primary Lab Results Component Value Date CHOL 135 04/06/2025 CHOL 308 (H) 02/07/2025 Lab Results Component Value Date HDL 33 (L) 04/06/2025 HDL 35 (L) 02/07/2025 No results found for: LDLCALC Lab Results Component Value Date TRIG 277 (H) 04/06/2025 TRIG 1,017 (H) 02/07/2025 No results found for: CHOLHDL Cholesterol has substantially improved. Triglycerides are <500, therefore lovaza may be discontinued Pt to continue with lifestyle and dietary modifications We will consider GLP 1 therapy now that triglycerides are controlled and pancreatitis risk has reduced. Type 2 diabetes mellitus with other specified complication, without long-term current use of insulin (HCC) Relevant Orders POCT glucose manually resulted (Completed) Lab Results Component Value Date HGBA1C 8.1 (H) 04/06/2025 Reduction of A1c by 2 points in 2 months Pt to continue on current medication therapy We will consider addition of Mounjaro for glycemic management and added benefit of weight loss. Of note: considered added benefit of glucose monitoring however due to structure of lifestyle and concern for compliance, glucose monitoring in the context of this patient does not pose any additional benefit. Treatment Goals: A1c goal: <7% FBG goal: <130 2 hour post prandial goal: <180 Advised Low sugar and Low carb diet. Counseled re: potential co-morbidities including cardiovascular disease. Counseled re: potential co-morbidities include neuropathy and retinopathy. Counseled re: potential co-morbidities include nephropathy. Follow up in about 2 months (around 06/07/2025). documented in this encounter Plan of Treatment Upcoming Encounters Date Type Department Care Team (Late st Contact Info) Description 05/04/2025 11:00 AM EST Medication Management [facility] MED & PEDS [address] [place] [address] Giana Bernard PharmD [address] [place] [address] 06/07/2025 1:00 PM EST Nutrition [facility] DIABETES/NTRN [address] [place] [address] [place], [place] [phone] documented as of this encounter Goals Goal [...] Priority Date/Time Associated Diagnosis Comments POCT GLUCOSE (CPT-[id number]) Routine 04/06/2025 2:23 PM EST Type 2 diabetes mellitus with other specified complication, without long-term current use of insulin (HCC) documented in this encounter Results * POCT glucose manually resulted (04/06/2025 2:23 PM EST) Glucose Blood, POC 88 60 - 200 mg/dL QC Media Lot # Comment:[id number] Lot# Expiration Date Comment:07/24/2025 Blood Capillary blood specimen / Unknown 04/06/2025 2:23 PM EST Yarely Patel CNP POINT OF CARE TEST ENTER/ EDIT ORDERABLES Final Result documented in this encounter Visit Diagnoses Diagnosis Hypertriglyceridemia- Primary Pure hyperglyceridemia Type 2 diabetes mellitus with other specified complication, without long-term current use of insulin (HCC) Dietary counseling Dietary surveillance and counseling Exercise counseling 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 and body mass index (BMI) of 35.0 to 35.9 in adult documented in this encounter Additional Health Concerns Active Problems Noted Date Diagnosed Date Help patients manage their type 2 diabetes 03/08 Patient has chronic kidney disease 03/08/2025 Patient has chronic kidney disease 03/08/2025 Patient has chronic kidney disease 04/06/2025 Assessment Noted Time PHQ-9 Depression Total Score: 15 025 9:32 AM EDT documented as of this encounter Care Teams Security Installer Relationship Specialty Start Date End Date Yarely Patel CNP [address] [place] [address] PCP - General Family Medicine 02/19/25 documented as of this encounter
--- OUTSIDE RECORDS SUMMARY | 2025-04-10 13:35 | XMS_ITS | Encounter Summary ---
Author Organization [facility] Address [address] [address] [place] [phone] Phone Care Team Providers Care Tiltrotor Crew Chief Name Role Phone Pcp, Unknown Primary Care Provider Unavailabl e Encounter Details Date Type Department Care Team (Late st Contact Info) Description 03/18/2022 Procedure Pass [facility], Ct Scan - [address] [address] Social History Tobacco Use Types Packs/Day Years [...] on filedocumented in this encounter Care Teams Tiltrotor Crew Chief Relationship Specialty Start Date End Date Pcp, Unknown PCP - General 03/18/22 documented as of this encounter Additional Source Comments The information contained in this document represents components of the legal health record. It is not the complete legal health record.[facility]
--- OUTSIDE RECORDS SUMMARY | 2025-04-10 13:35 | XMS_ITS | Clinical Summary ---
Author Organization [employer] Address [address] [facility] 7t [place] [address] Care Team Providers Care Technical Aide Name Role Phone Jorge Ottonielanitajannie MICHAEL Primary Care Provider +1 [phone] Allergies No known active allergies Medications metFORMIN (Glucophage) 500 MG tabletIndicatio ns:Type 2 diabetes mellitus with other specified complication, without long-term current use of insulin ([facility]) Take 1 tablet (500 mg) by mouth with breakfast and with evening meal. 60 tablet 11 5 03/08/20 26 Active glucagon (Baqsimi) 3 MG/DOSE nasal powderIndicatio ns:Type 2 diabetes mellitus with other specified complication, without long-term current use of insulin ([facility]) Administer 3 mg into affected nostril(s) 1 (one) time if needed for low blood sugar. 1 each 1 5 03/08/20 26 Active atorvastatin (Lipitor) 40 MG tabletIndicatio ns:Type 2 diabetes mellitus with other specified complication, without long-term current use of insulin ([facility]) Take 1 tablet (40 mg) by mouth Once per day. 30 tablet 11 5 03/08/20 26 Active empagliflozin (Jardiance) 10 MGIndications:T ype 2 diabetes mellitus with other specified complication, without long-term current use of insulin ([facility]) Take 1 tablet (10 mg) by mouth Once per day. 30 tablet 11 5 03/08/20 26 Active omega-3 acid ethyl esters (Lovaza) 1 g capsuleIndicati ons:Type 2 diabetes mellitus with other specified complication, without long-term current use of insulin ([facility]),Hypertrig lyceridemia Take 2 capsules (2 g) by mouth 2 times daily. 120 capsule 11 5 03/08/20 26 Active Tirzepatide (Mounjaro) 2.5 MG/0.5ML solution auto-injectorIn dications:Type 2 diabetes mellitus with other specified complication, without long-term current use of insulin (HCC) Inject 2.5 mg under the skin 1 (one) time per week. 2 mL 5 Active Tirzepatide (Mounjaro) 5 MG/0.5ML solution auto-injectorIn dications:Type 2 diabetes mellitus with other specified complication, without long-term current use of insulin ([facility]) Inject 5 mg under the skin 1 (one) time per week. Hold until completing 2.5mg doses 2 mL 1 5 Active Active Problems Problem Noted Date Diagnosed Date Type 2 diabetes mellitus, wi thout long-term current use of insulin 04/10/2025 Primary hypertension 04/10/2025 Obesity 04/04/2025 Chest wall pain 03/08/2025 High triglycerides 03/08/2025 Hypothyroid 03/08/2025 Class 1 obesity 03/08/2025 Encounters Date Type Department Care Team Description 04/10/2025 Travel 04/06/2025 2:30 PM EST Office Visit [facility] [address] [place] [address] Yarely Patel CNP Hypertriglyceridemia (Primary Dx); Type 2 diabetes mellitus with other specified complication, without long-term current use of insulin ([facility]); Dietary counseling; Exercise counseling; 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 and body mass index (BMI) of 35.0 to 35.9 in adult 04/06/2025 Telephone [facility] [address] [place] [address] Yarely Patel CNP Appointment 04/06/2025 Travel 04/04/2025 Telephone [facility] [address] [place] [address] Yarely Patel CNP chart prep 03/21/2025 Population Health Risk Score [facility] () Department [address] [place] [id number] Provider, Population Health Generic 03/19/2025 Telephone [facility] [address] [place] [address] Yarely Patel CNP Referral 03/12/2025 Telephone [facility] [address] [place] [address] Yarely Patel CNP recall appt 03/08/2025 1:30 PM EST Telemedicine [facility] [address] [place] [address] Yarely Patel CNP Type 2 diabetes mellitus with other specified complication, without long-term current use of insulin (HCC) (Primary Dx); Hypertriglyceridemia 03/08/2025 Orders Only [facility] [address] [place] [address] Char Wright MD Type 2 diabetes mellitus with other specified complication, without long-term current use of insulin (HCC) (Primary Dx); Hypertriglyceridemia 02/22/[address] [address] Yarely Patel CNP r/s appt 02/22/2025 Travel 02/16/2025 Results Follow-Up [facility] [address] [place] [address] Jeanie Briggs MD Hemoglobin A1c, Basic Metabolic Panel, Lipid Panel, Standard, Hepatic Function Panel 02/07/2025 9:00 AM EDT Office Visit [facility] [address] [place] [address] Jeanie Briggs MD Primary hypertension (Primary Dx); Prediabetes; Neck pain 02/07/2025 Travel 02/05/2025 Telephone [facility] [address] [place] [address] Jeanie Briggs MD chart prep 02/02/2025 Patient Outreach [address] [address] Timmy Krueger MD Pre-visit Planning (Pre visit [...] Description 05/04/2025 11:00 AM EST Medication Management [facility] [address] [place], [place] [phone] Giana Bernard PharmD [address] [place], [place] [phone] 06/07/2025 1:00 PM EST Nutrition [facility] DI[facility]ET[facility]/NTRN [address] [place], [place] [phone] Viviana Madera [address] [place] [address] Health Maintenance Due Date Last Done Comments [...] (1 of 2) 08/17/2021 Diabetes: Hemoglobin A1C 07/05/2025 025, 02/07/2025 Depression Monitoring 08/08/2025 02/07/2025 , 02/07/2025 Influenza Vaccine (#1) 2025 Postp oned from 12/18/2024 (Patient Refused) Alcohol/Substance Use Screening 02/07/2026 02/07/2025 COVID-19 Vaccine (2024-2 6 season) 2026 Postponed from 12/18 (Patient Refused) Disability Screening 02/07/2026 02/07/2025 SDOH Screening 02/07/2026 02/07/2025 Tobacco Screening 02/07/2026 02/07/2025 Lipid Panel 04/06/2026 04/06/2025, 02/07/2025 DTaP/Tdap/Td Vaccines (2 - T d [...] chronic kidney disease No Neda Salcido [place] Patient has chronic kidney disease Care Plan Patient has chronic kidney disease No Giana Bernard PharmD Procedures Procedure Name Priority Date/Time Associated Diagnosis Comments HEMOGLOBIN A1C Routine 04/06/2025 2:52 PM EST Type 2 diabetes mellitus with other specified complication, without long-term current use of insulin (HCC) COMPREHENSIVE METABOLIC PANEL Routine 04/06/2025 2:52 PM EST Type 2 diabetes mellitus with other specified complication, without long-term current use of insulin (HCC) LIPID PANEL, STANDARD Routine 04/06/2025 2:52 PM EST Type 2 diabetes mellitus with other specified complication, without long-term current use of insulin (HCC) POCT GLUCOSE (CPT-[id number]) Routine 04/06/2025 2:23 PM EST Type 2 [...] Prediabetes from Last 3 Months Results * (ABNORMAL) Hemoglobin A1c (04/06/2025 2:52 PM EST) Only the most recent of2 resultswithin the time period is included. Hemoglobin A1c 8.1(H) <6.0 % [facility] Comment:Hemoglobin A1C Refer ence Range Adults: 4.8 - 6.0 % Non diabetic: < 6.0 % Goal: < 7.0 %Additional Action Suggested: > 8.0 %Note: Hemoglobin A1c results are invalid for patients with abnormal amounts of HbF. Blood transfusions may impact the HbA1c concentration in the patient sample. Estimated Average Glucose 186 mg/dL [facility] Comment:eAG = Estimated ave rage glucose which is %A1C expressed asaverage glucose, using the formula of the T4H-IxaelzvGhzbpzo Glucose study (ADAG), Diabetes Care, Vol.31,#8,2007 Blood Venous blood specimen / Unknown 04/06/2025 2:52 PM EST 04/06/2025 3:56 PM EST [facility] LAB BLOOD ORDERABLES Amy l Result [facility] [address] [place] [phone] [phone] * (ABNORMAL) Lipid Panel, Standard (04/06/2025 2:52 PM EST) Only the most recent of2 resultswithin the time period is included. Triglycerides 277(H) <150 mg/dL [facility] Comment:Desirable Triglyceri de: less than 150 mg/dLBorderline High Triglyceride 150-199 mg/dLHigh Triglyceride: 200-499 mg/dLVery High Triglyceride: greater than or equal to 5OO mg/dL Cholesterol 135 <200 mg/dL [facility] Comment:Desirable Cholestero l: less than 200 mg/dLBorderline High Cholesterol: 200-239 mg/dLHigh Cholesterol: greater than 239 mg/dL LDL Cholesterol Calculated 47 <100 mg/dL [facility] Comment:Desirable LDL: less than 100 mg/dLNear Optimal/Above Optimal LDL: 110- 129 mg/dLBorderline High LDL: 130-159 mg/dLHigh LDL: 160-189 mg/dLVery High LDL: greater than or equal to 190 mg/dL HDL Cholesterol 33(L) >40 mg/dL [facility] Comment:Desirable HDL: great er than 40 mg/dL Note: This HDL assay may give artificially low results in patients with liver disease. Blood Venous blood specimen / Unknown 04/06/2025 2:52 PM EST 04/06/2025 3:56 PM EST [facility] LAB BLOOD ORDERABLES Amy l Result [facility] [address] [place] [address] [phone] * (ABNORMAL) Comprehensive Metabolic Panel (04/06/2025 2:52 PM EST) Sodium 140 135 - 145 mmol/L [facility] Potassium 4.5 3.3 - 5.1 mmol/L [facility] Chloride 105 96 - 108 mmol/L [facility] Carbon Dioxide 25 22 - 29 mmol/L [facility] Anion Gap 15 12 - 20 [facility] Urea Nitrogen (BUN) 23(H) 9 - 16 mg/dL [facility] Creatinine, Serum 0.78 0.5 - 1.4 mg/dL [facility] Estimated Glomerular Filt Rate >60 [facility] Comment:Chronic Kidney Disea se: Estimated GFR < 60 mL/min/1.78d5Qddoiy Kidney Disease: Estimated GFR < 15 mL/min/1.73m2 Glucose 99 60 - 115 mg/dL [facility] Calcium 9.8 8.4 - 10.2 mg/dL [facility] Bilirubin, Total 0.5 0.0 - 1.0 mg/dL [facility] Aspartate Amino Transferase 62(H) 5 - 37 U/L [facility] Alanine Aminotransferase 57(H) 0 - 40 U/L [facility] Total Protein 7.1 6.5 - 8.0 g/dL [facility] Albumin Level 5.0 3.5 - 5.0 g/dL [facility] Alkaline Phosphatase 83 39 - 117 U/L [facility] Blood Venous blood specimen / Unknown 04/06/2025 2:52 PM EST 04/06/2025 3:56 PM EST [facility] LAB BLOOD ORDERABLES Amy l Result [facility] [address] [place] [phone] * POCT glucose manually resulted (04/06/2025 2:23 PM EST) Glucose Blood, POC 88 60 - 200 mg/dL [employer] Media Lot # Comment:[id number] Lot# Expiration Date Comment:07/24/2025 Blood Capillary blood specimen / Unknown 04/06/2025 2:23 PM EST [facility] POINT OF CARE TEST ENTER/ EDIT ORDERABLES Final Result * (ABNORMAL) Hepatic Function Panel (02/07/2025 10:08 AM EDT) Pathologist [facility] Bilirubin, Total 0.6 0.0 - 1.0 mg/dL [facility] Bilirubin, Direct 0.1 0.0 - 0.5 mg/dL [facility] Aspartate Amino Transferase 38(H) 5 - 37 U/L [facility] Alanine Aminotransferase 59(H) 0 - 40 U/L [facility] Total Protein 6.8 6.5 - 8.0 g/dL [facility] Albumin Level 4.7 3.5 - 5.0 g/dL [facility] Alkaline Phosphatase 91 39 - 117 U/L [facility] Blood Venous blood specimen / Unknown 02/07/2025 10:08 AM EDT 02/07/2025 1:59 PM EDT Jeanie Briggs MD LAB BLOOD ORDERABLES Final Resul t [facility] [address] [place] [phone] * (ABNORMAL) Basic Metabolic Panel (02/07/2025 10:08 AM EDT) [facility] Sodium 137 135 - 145 mmol/L [facility] Potassium 4.1 3.3 - 5.1 mmol/L [facility] Chloride 102 96 - 108 mmol/L [facility] Carbon Dioxide 27 22 - 29 mmol/L [facility] Anion Gap 12 12 - 20 [facility] Urea Nitrogen (BUN) 27(H) 9 - 16 mg/dL [facility] Creatinine, Serum 0.88 0.5 - 1.4 mg/dL [facility] Estimated Glomerular Filt Rate >60 [facility] Comment:Chronic Kidney Disea se: Estimated GFR < 60 mL/min/1.18t8Tbgogl Kidney Disease: Estimated GFR < 15 mL/min/1.73m2 Glucose 235(H) 60 - 115 mg/dL [facility] Calcium 9.0 8.4 - 10.2 mg/dL [facility] Blood Venous blood specimen / Unknown 02/07/2025 10:08 AM EDT 02/07/2025 1:59 PM EDT us Jeanie Briggs MD LAB BLOOD ORDERABLES Final Resul t [facility] [address] [place] [phone] from Last 3 Months Additional Health Concerns Active Problems Noted Date Diagnosed Date Help patients manage their type 2 diabetes 03/08 Patient has chronic kidney disease 03/08/2025 Patient has chronic kidney disease 03/08/2025 Patient has chronic kidney disease 04/06/2025 Patient has chronic kidney disease 04/10/2025 Insurance [facility] C3 Care Teams Technical Aide Relationship Specialty Start Date End Date Yarely Patel CNP [address] [place] [address] [phone] PCP - General Family Medicine 02/19/25
--- OUTSIDE RECORDS SUMMARY | 2025-04-10 13:35 | XMS_ITS | Encounter Summary ---
Author Organization [employer] Address [address] [facility] 7 [place] [address] Care Team Providers Care Food Production Machine Operator Name Role Phone Yarely Patel CNP Primary Care Provider [phone] [phone] Reason for Visit * Reason Onset Date Comments Appointment 04/06/2025 Encounter Details Date Type Department Care Team ([facility] st Contact Info) Description 04/06/2025 Telephone [facility] [address] [place], [place] [phone] Yarely Patel CNP [address] [place] [address] Appointment Social History Tobacco Use Types Packs/Day Years [...] encounter Miscellaneous Notes * Telephone Encounter - Adelaide Dahl - 04/06/2025 4:37 PM EST Outgoing call creative services writer attempted to татьяна active request appointment: Follow up in about 2 months (around 06/07/2025).If pt returns call please schedule on next avail. documented in this encounter Plan of Treatment Upcoming Encounters Date Type Department Care Team (Late st Contact Info) Description 05/04/2025 11:00 AM EST Medication Management [facility] [address] [place] [address] Giana Bernard PharmD [address] [place] [address] 06/07/2025 1:00 PM EST Nutrition [facility] DIABETES/NTRN [address] [place] [address] [place], [place] [phone] documented as of this encounter Goals Goal [...] documented as of this encounter Care Teams Food Production Machine Operator Relationship Specialty Start Date End Date Yarely Patel CNP [address] [place] [address] PCP - General Family Medicine 02/19/25 documented as of this encounter
--- OUTSIDE RECORDS SUMMARY | 2025-04-10 13:35 | XMS_ITS | Encounter Summary ---
Author Organization [employer] Address [address] [facility] [address] 7[address] [place] [address] Care Team Providers Care Senior Market Intelligence Consultant Name Role Phone Jorge Ottonielanitajannie MICHAEL Primary Care Provider +1 -[phone] Encounter Details Date Type Department Care Team (Latest Contact Info) Description 04/10/2025 Travel Social History Tobacco Use Types Packs/Day [...] situation today? I have jose de jesus me 02/07/[address] you li [...] 05/04/2025 11:00 AM EST Medication Management [facility] [address] [place] [address] Giana Bernard PharmJayde [address] [place] [address] 06/07/2025 1:00 PM EST Nutrition [facility] DIABETES/NTRN [address] [place] [address] [place] [address] documented as of this encounter Goals Goal [...] chronic kidney disease No Giana Bernard PharmD documented as of this encounter Visit Diagnoses Not on filedocumented in this encounter Additional Health Concerns Active Problems Noted Date Diagnosed Date Help patients manage their type 2 diabetes 03/08 Patient has chronic kidney disease 03/08/2025 Patient has chronic kidney disease 03/08/2025 Patient has chronic kidney disease 04/06/2025 Patient has chronic kidney disease 04/10/2025 Assessment Noted Time PHQ-9 Depression Total Score: 15 025 9:32 AM EDT documented as of this encounter Care Teams Senior Market Intelligence Consultant Relationship Specialty Start Date End Date Yarely Patel CNP [address] [place] [address] PCP - General Family Medicine 02/19/25 documented as of this encounter
--- OUTSIDE RECORDS SUMMARY | 2025-04-10 13:35 | XMS_ITS | Encounter Summary ---
Author Organization [employer] Address [address] [facility] [address] 7[address] [place] [address] Care Team Providers Care Enterprise Integration Architect Name Role Phone Jorge Ottonielanitajannie MICHAEL Primary Care Provider [phone] [phone] Encounter Details Date Type Department Care Team [...] Description 05/04/2025 11:00 AM EST Medication Management [facility] [address] [place], [place] [phone] Giana Bernard PharmD [address] [place] [address] 06/07/2025 1:00 PM EST Nutrition [facility] DIABETES/NTRN [address] [place] [address] [place] [address] documented as of this encounter Goals Goal [...] documented as of this encounter Care Teams Enterprise Integration Architect Relationship Specialty Start Date End Date Yarely Patel CNP [address] [place] [phone] PCP - General Family Medicine 02/19/25 documented as of this encounter
--- OUTSIDE RECORDS SUMMARY | 2025-04-10 13:35 | XMS_ITS | Encounter Summary ---
Author Organization [employer] Address [address] [facility] 7t [place] [address] Care Team Providers Care Assembler Flexible Leads Name Role Phone Yarely Patel CNP Primary Care Provider [phone] [phone] Reason for Visit * Reason Onset Date Comments Referral 03/19/2025 Encounter Details Date Type Department Care Team ([facility] st Contact Info) Description 03/19/2025 Telephone [facility] MED[facility]INE [address] [place] [address] Yarely Patel CNP [address] [place] [address] Referral Social History Tobacco Use Types Packs/Day [...] Tc from pt requesting new referral for [employer]. Location:[address], [address] [place] [address] Please contact at [phone] documented in this encounter Plan of Treatment Upcoming Encounters Date Type Department Care Team (Late st Contact Info) Description 05/04/2025 11:00 AM EST Medication Management [facility] MED & PEDS [address] [place] [address] Giana Bernard PharmD [address] [place] [address] 06/07/2025 1:00 PM EST Nutrition [facility] DIABETES/NTRN [address] [place] [address] [place] [address] documented as of this encounter Goals Goal [...] documented as of this encounter Care Teams Assembler Flexible Leads Relationship Specialty Start Date End Date Yarely Patel CNP [address] [place] [phone] PCP - General Family Medicine 02/19/25 documented as of this encounter
--- OUTSIDE RECORDS SUMMARY | 2025-04-10 13:35 | XMS_ITS | Encounter Summary ---
Author Organization [employer] Address [address] [facility] 7t [place] [address] Care Team Providers Care Analysis Manager Name Role Phone Yarely Patel CNP Primary Care Provider [phone] [phone] Reason for Visit * Reason Onset Date Comments r/s appt 02/22/2025 Encounter Details Date Type Department Care Team (Late st Contact Info) Description 02/22/2025 Telephone [facility] MEDICINE [address] [place] [address] Yarely Patel CNP [address] [place] [address] r/s appt Social History Tobacco Use Types [...] functions.//No active insurance -pt not enrolled in [facility] ) pt had another insurance active will like a sooner appointment 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 PCP PROSPER Patel documented in this encounter Plan of Treatment Upcoming Encounters Date Type Department Care Team (Late st Contact Info) Description 05/04/2025 11:00 AM EST Medication Management [facility] MED & PEDS [address] [place] [address] Giana Bernard, PharmD [address] [place], [place] [phone] 06/07/2025 1:00 PM EST Nutrition [facility] DIABETES/NTRN [address] [place] [address] [place], [place] [phone] documented as of this encounter Visit Diagnoses Not on filedocumented in this encounter Additional Health Concerns Assessment Noted Time PHQ-9 Depression Total Score: 15 025 9:32 AM EDT documented as of this encounter Care Teams Analysis Manager Relationship Specialty Start Date End Date Yarely Patel CNP [address] [place] [address] PCP - General Family Medicine 02/19/25 documented as of this encounter
--- OUTSIDE RECORDS SUMMARY | 2025-04-10 13:35 | XMS_ITS | Encounter Summary ---
Author Organization [employer] [facility] Address [address] [place] [address] 7t [place] [address] Care Team Providers Care Assisted Living Housekeeper Name Role Phone Jeanie Briggs MD Primary Care Provider Yarely Patel CNP Primary Care Provider [phone] [phone] Encounter Details Date Type Department Care Team (Latest Contact Info) Description 08/08/2020 Abstract [facility] CONVERSIONS Dental, Provider, DDS Social History Tobacco [...] Description 05/04/2025 11:00 AM EST Medication Management [facility] MED & PEDS [address] [place] [address] Giana Bernard, PharmD [address] [place] [address] 06/07/2025 1:00 PM EST Nutrition [facility] DIABETES/NTRN [address] [place], [place] [phone] Viviana Madera, BETTY [address] [place] [address] documented as of this encounter Visit Diagnoses Not on filedocumented in this encounter Care Teams Assisted Living Housekeeper Relationship Specialty Start Date End Date Jeanie Briggs MD [address] [place] [address] PCP - General Family Medicine 02/07/25 02/18/25 Yarely Patel CNP [address] [place] [address] PCP - General Family Medicine 02/19/25 documented as of this encounter
--- OUTSIDE RECORDS SUMMARY | 2025-04-10 13:35 | XMS_ITS | Clinical Summary ---
Author Organization [facility] Address [address] [place] [phone] Phone Care Team Providers Care Physical Education Teacher Name Role Phone Pcp, Unknown Primary Care [...] topic Medical Devices Not on file [facility] [employer]HER [employer] [facility] TOGETHER [employer] [facility] TOGETHER [employer] Care Teams Physical Education Teacher Relationship Specialty Start Date End Date Pcp, Unknown PCP - General 03/18/22 Additional Source Comments The information contained in this document represents components of the legal health record. It is not the complete legal health record.[facility]
[2025-04-10 16:16] LABS: Microalbum/Creatinine Ratio Ur 94.6 ug/mg cr (<30)
== END 2025-04-10 12:33 | disposition home or self-care (01) ==
LOC: HO.CHCLDS 12:32
DX: E11.8 Type 2 diabetes mellitus with unspecified complications (principal)
CPT/HCPCS: 82043; 82570